=== PATIENT | female | born 1965 | race Caucasian/White ===

== ENCOUNTER 2023-02-22 09:15 | Day surgery (SDC) | payer OTHER ==
[2023-02-21 13:25] LABS: BASOPHILS # (AUTO) 0.1 X10'3 (0-0.2); BASOPHILS % (AUTO) 0.8 % (0-1); EOSINOPHILS # (AUTO) 0.4 X10'3 (0-0.9); EOSINOPHILS % (AUTO) 4.4 % (0-6); LYMPHOCYTES # (AUTO) 3.2 X10'3 (1.1-4.8); LYMPHOCYTES % (AUTO) 35.9 % (21-51); MEAN CORPUSCULAR HEMOGLOBIN 30.2 PG (27.0-31.0); MEAN CORPUSCULAR VOLUME 88.7 FL (78-98); MEAN PLATELET VOLUME 6.6 FL (7.4-10.4); MONOCYTES # (AUTO) 0.7 X10'3 (0-0.9); MONOCYTES % (AUTO) 7.5 % (2-12); NEUTROPHILS # (AUTO) 4.5 X10'3 (1.8-7.7); NEUTROPHILS % (AUTO) 51.4 % (42-75); PRE OP HEMATOCRIT 41.1 % (35.0-45.0); PRE OP PLATELET COUNT 370 X10'3 (140-440); RED BLOOD COUNT 4.63 X10'6 (4.20-5.60); RED CELL DISTRIBUTION WIDTH 13.6 % (11.5-14.5)
[2023-02-21 13:53] LABS: ALBUMIN 3.8 G/DL (3.4-5.0); ALBUMIN/GLOBULIN RATIO 0.8 (1.1-1.5); ALKALINE PHOSPHATASE 97 IU/L (46-116); BLOOD UREA NITROGEN 13 MG/DL (7-18); CALCIUM 9.8 MG/DL (8.5-10.1); CHLORIDE 101 MMOL/L (99-107); PRE OP ALT 32 U/L (30-65); PRE OP ANION GAP 9 (8-16); PRE OP AST 29 U/L (10-37); PRE OP BILIRUB, TOTAL 0.3 MG/DL (0.0-1.0); PRE OP GLUCOSE 90 MG/DL (70-104); PRE OP POTASSIUM 4.1 MMOL/L (3.4-5.1); PRE OP SODIUM 139 MMOL/L (135-145); TOTAL CARBON DIOXIDE 28.9 MMOL/L (24-32); TOTAL PROTEIN 8.3 G/DL (6.4-8.2)
[2023-02-21 13:56] LABS: BUN/CREATININE RATIO 17.3 (10.0-20.0); CREATININE 0.75 MG/DL (0.40-0.90); eGFR 79 ML/MIN
[2023-02-22] VITALS (16 sets, daily range): BP systolic 113–156; BP diastolic 57–95
[~2023-02-22] VITALS: Ht 162.6 cm; Wt 112.5 kg
[~2023-02-22 09:15] MED LIST: ASPI-1264 PO; CEPH500C2 PO; HYDR-3972; LEVO75TA7 PO; RABE20TA31 PO; famotidine 20mg tablet PO ONE; ringers solution, lacted 1,000 ML IV SCH
[2023-02-22] MEDS ORDERED: cefazolin 2gm/D5W 100mL 100 ML IV ONE (11:00)
[2023-02-22] MEDS ORDERED: BUPIVAcaine/PF 2.5 mg/ml (0.25%) 30ml vial ONE (11:52)
[2023-02-22] MEDS ORDERED: povidone-iodine 10% ointment 1 APPLIC APPLIC TP ONE (11:52)
[2023-02-22] MEDS ORDERED: fentaNYL/PF 50MCG/1 ML 2ML syringe ONE ×2 (12:11→14:13)
[2023-02-22] MEDS ORDERED: midazolam 1 mg/ML 2ml injection ONE (12:11)
[2023-02-22] MEDS ORDERED: sevoflurane 250ml liquid IH ONE (12:18)
[2023-02-22] MEDS ORDERED: morphine 4 MG/ML inj SYRINge IV PRN (13:25)
[2023-02-22] MEDS ORDERED: morphine 2 MG/ML inj. syringe IV PRN (13:25)
[2023-02-22] MEDS ORDERED: ringers solution, lacted 1,000 ML IV SCH (13:25)
[2023-02-22] MEDS ORDERED: proCHLORperazine 10 MG/2 ml inj IV PRN (13:25)
[2023-02-22] MEDS ORDERED: ondansetron/PF 4mg/2ml inj IV PRN (13:25)
[2023-02-22] MEDS ORDERED: meperidine/PF 25mg/ml syringe IV PRN ×2 (13:25)
[2023-02-22] MEDS ORDERED: ePHEDrine 50MG/ML INJ. ONE (14:13)
[2023-02-22] MEDS ORDERED: neostigmine methylsulfate 1 MG/ML 10ml vial ONE (14:13)
[2023-02-22] MEDS ORDERED: ondansetron/PF 4mg/2ml inj ONE (14:13)
[2023-02-22] MEDS ORDERED: glycopyrrolate 0.2mg/ml inj ONE (14:13)
[2023-02-22] MEDS ORDERED: dexamethasone sod phosphate 4mg/ml inj. ONE (14:13)
[2023-02-22] MEDS ORDERED: rocuronium 10mg/ml inj IV ONE (14:13)
[2023-02-22] MEDS ORDERED: ROPIVAcaine 0.5% (5mg/ml) 30ml vial ONE (14:13)
[2023-02-22] MEDS ORDERED: propofol inj 20 ML IV ONE (14:13)
[2023-02-22] MEDS ORDERED: acetaminophen 1,000mg/100ml IV 100 ML IV ONE (15:08)
[2023-02-22] MEDS ORDERED: meperidine/PF 25mg/ml syringe ONE (15:13)
--- NOTE | 2023-02-22 15:22 | NUR ---
Received from OR via , accompanied by Anesthesiologist HAYES and OR NURSE report given by Anesthesiolgist. PT IS DROWSY AND DIFFICULT TO AROUSE; NOT ABLE TO MAINTAIN AIRWAY. MANIPULATE JAW; ADDED NASAL AIRWAY. DENIES PAIN OR DISCOMFORT. 20G TO LT AC. RT ANKLE WITH CAST AND GAUZE AND LEE WRAP; CDI. VSS Addendum: 02/22/23 at 1558 by Luann Boone RN Amended: Links added.
[2023-02-22] MEDS ORDERED: bacitracin 15gm ointment TP ONE (15:31)
[2023-02-22] MEDS: meperidine/PF 25mg/ml syringe IV PRN ×2 (16:15→16:26)
--- NOTE | 2023-02-22 18:22 | NUR ---
ALL DISCHARGE CRITERIA HAS BEEN MET; PT STRUGGLED WITH DIZZINESS BUT STATES THAT HAPPENS WITH MEDICATIONS. RESOLVED WNL FOR PT TO D/C HOME. VSS, PAIN AT A TOLERABLE LEVEL, VOIDING AND ABLE TO SAFELY AMBULATE AND TRANSFER SELF. IV TAKEN OUT WITHOUT ANY COMPLICATIONS. ALL DISCHARGE INSTRUCTIONS COVERED WITH PATIENT AND ALL QUESTIONS ANSWERED. PATIENT TAKEN OUT VIA WHEELCHAIR TO PERSONAL VEHICLE WHERE FAMILY/FRIEND DROVE PATIENT HOME Addendum: 02/22/23 at 1940 by Luann Boone RN Amended: Links added.
== END 2023-02-22 18:22 | disposition home or self-care (01) ==
LOC: PAS 09:15
PROVIDERS: ATTEND Podiatrist Foot & Ankle Surgery
DX: S82.871A Displaced pilon fracture of right tibia, initial encounter for closed fracture (principal); S93.431A Sprain of tibiofibular ligament of right ankle, initial encounter; M47.897 Other spondylosis, lumbosacral region; E66.9 Obesity, unspecified; Z68.41 Body mass index [BMI] 40.0-44.9, adult; E03.9 Hypothyroidism, unspecified; K21.9 Gastro-esophageal reflux disease without esophagitis; G89.18 Other acute postprocedural pain; I10 Essential (primary) hypertension; Z98.890 Other specified postprocedural states; Z79.899 Other long term (current) drug therapy; Z79.82 Long term (current) use of aspirin; Z72.89 Other problems related to lifestyle; Z82.49 Family history of ischemic heart disease and other diseases of the circulatory system; X58.XXXA Exposure to other specified factors, initial encounter; Y93.89 Activity, other specified; Y92.89 Other specified places as the place of occurrence of the external cause; Y99.8 Other external cause status
CPT/HCPCS: 27828; 27829; 36415; 64447; 64450; 73600; 76000; 80053; 82948; 85025; 93005; A6223; C1713; C1776; J0131; J0690; J0780; J1100; J2175; J2250; J2405; J2704; J2710; J2795; J3010; J3490; J7030; J7120; Z7506; Z7508; Z7512; A4618; A6253; A6449; A7000

== ENCOUNTER 2024-10-16 16:14 | Emergency (ER) | payer OTHER ==
[~2024-10-16] VITALS: Ht 162.6 cm; Wt 113.6 kg
[~2024-10-16 16:14] MED LIST changes: -famotidine 20mg tablet PO ONE; -ringers solution, lacted 1,000 ML IV SCH
[2024-10-16 16:21] VITALS: BP 167/80; PULSE 90; RESP 15; O2SAT 100
[2024-10-16] MEDS ORDERED: LIDO700A32 TD (18:36)
[2024-10-16] MEDS ORDERED: LIDOcaine 5% patch TP ONE (19:41)
[2024-10-16 19:44] VITALS: TEMP 98.4
== END 2024-10-16 19:46 | disposition home or self-care (01) ==
LOC: ER 16:15
DX: M25.552 Pain in left hip (principal); Z79.82 Long term (current) use of aspirin; Z79.2 Long term (current) use of antibiotics; V89.2XXA Person injured in unspecified motor-vehicle accident, traffic, initial encounter; Y92.410 Unspecified street and highway as the place of occurrence of the external cause; Y93.89 Activity, other specified; Y99.8 Other external cause status
CPT/HCPCS: 72170; 99283